=== PATIENT | male | born 1995 | race Caucasian/White ===

== ENCOUNTER 2019-04-07 07:25 | Emergency (ER) | payer MEDICAID ==
--- NOTE | 2019-04-07 07:41 | Emergency Department Record ---
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 He decided to get it checked. He was seen at Urgent care a month ago for the same problem and was told he had tendonitis. He was placed in a splint and given motrin 800 BID to TID which he has been doing. He is right handed. He denies other roblems. They did not xray his wrist at his initial visit. MD Complaint: Extremity pain Onset/Timin -: Month(s) Location: Right, Hand History of Same: No Radiation: Proximal Severity scale (1-10): 6 Quality: Aching Consistency: Constant Improves with: Nothing Worsens with: Nothing Associated Symptoms: Denies other symptoms - Related Data Allergies Allergy/AdvReac Type Severity Reaction Status Date / Time No Known Drug Allergies Allergy Verified 04/07/19 07:34 Travel Screening - Travel/Exposure Within Last 30 Days Have you traveled within the last 30 days?: No Review of Systems Reviewed: No additional complaints except as noted below Constitutional: Reports: As per HPI. Denies: Chills, Fever, Malaise, Night sweats, Weakness, Weight change Eyes: Reports: As per HPI. Denies: Eye discharge, Eye pain, Photophobia, Vision change ENT: Reports: As per HPI. Denies: Congestion, Dental pain, Ear pain, Epistaxis, Hearing loss, Throat pain Respiratory: Reports: As per HPI. Denies: Cough, Dyspnea, Hemoptysis, Stridor, Wheezes Cardiovascular: Reports: As per HPI. Denies: Arrhythmia, Chest pain, Dyspnea on exertion, Edema, Murmurs, Orthopnea, Palpitations, Paroxysmal nocturnal dyspnea, Rheumatic Fever, Syncope Endocrine: Reports: As per HPI. Denies: Fatigue, Heat or cold intolerance, Polydipsia, Polyuria Gastrointestinal: Reports: As per HPI. Denies: Abdominal pain, Constipation, Diarrhea, Hematemesis, Hematochezia, Melena, Nausea, Vomiting Genitourinary: Reports: As per HPI. Denies: Dysuria, Frequency, Hematuria, Incontinence, Retention, Testicular pain, Testicular mass, Urgency Musculoskeletal: Reports: As per HPI. Denies: Arthralgia, Back pain, Gout, Joint swelling, Myalgia, Neck pain Skin: Reports: As per HPI. Denies: Bruising, Change in color, Change in hair/nails, Lesions, Pruritus, Rash Neurological: Reports: As per HPI. Denies: Abnormal gait, Confusion, Headache, Numbness, Paresthesias, Seizure, Tingling, Tremors, Vertigo, Weakness Psychiatric: Reports: As per HPI. Denies: Anxiety, Auditory hallucinations, Depression, Homicidal thoughts, Suicidal thoughts, Visual hallucinations Hematological/Lymphatic: Reports: As per HPI. Denies: Anemia, Blood Clots, Easy bleeding, Easy bruising, Swollen glands Past Medical History - SOCIAL HISTORY Smoking Status: Never smoker Alcohol Use: None Drug Use: None - RESPIRATORY Hx Respiratory Disorders: No - CARDIOVASCULAR Hx Cardio Disorders: No - NEURO Hx Neuro Disorders: No - GI Hx GI Disorders: No - Hx Genitourinary Disorders: No - ENDOCRINE Hx Endocrine Disorders: No - MUSCULOSKELETAL Hx Musculoskeletal Disorders: No - PSYCH Hx Psych Problems: No - HEMATOLOGY/ONCOLOGY Hx Hematology/Oncology Disorders: No Family Medical History Any Significant Family History?: No Physical Exam - General General Appearance: Alert, Oriented x3, Cooperative, No acute distress - Head Head exam: Normal inspection - Eye Eye exam: Normal appearance, PERRL, EOMI. negative: Conjunctival injection, Nystagmus Pupils: Normal accommodation - ENT ENT exam: Normal exam, Mucous membranes moist, Normal external ear exam, Normal orophraynx, TM's normal bilaterally Ear exam: Normal external inspection. negative: External canal tenderness Nasal Exam: Normal inspection. negative: Discharge, Sinus tenderness Mouth exam: Normal external inspection, Tongue normal Teeth exam: Normal inspection. negative: Dental caries Throat exam: Normal inspection. negative: Tonsillar erythema, Tonsillar exudate - Neck Neck exam: Normal inspection, Full ROM. negative: Lymphadenopathy, Meningismus, Tenderness - Respiratory Respiratory exam: Normal lung sounds bilaterally. negative: Respiratory distress - Cardiovascular Cardiovascular Exam: Regular rate, Normal rhythm, Normal heart sounds - GI/Abdominal GI/Abdominal exam: Soft. negative: Tenderness - Rectal Rectal exam: Deferred - exam: Deferred - Extremities Extremities exam: Normal inspection, Full ROM, Normal capillary refill, Tenderness (tender over dorsal aspect of right wrist joint. Flexion, gripping, and ulnar deviation produces the pain of chief complaint. No snuff box tenderness. ) - Back Back exam: Reports: Normal inspection, Full ROM. Denies: Muscle spasm, Rash noted, Tenderness - Neurological Neurological exam: Alert, Normal gait, Oriented X3, Reflexes normal - Psychiatric Psychiatric exam: Normal affect, Normal mood - Skin Skin exam: Dry, Intact, Normal color, Warm Course Vital Signs 04/07/19 07:29 Temperature 97.7 F Pulse Rate [ 75 Pulse Ox Probe] Respiratory 20 Rate Blood Pressure 126/79 [Left Arm] Pulse Ox 99 Medical Decision Making - Management Options MDM Management: No Additional Work-up Planned (PCP follow up and work restriction.) - Data Complexity MDM Data: X-Ray Ordered and/or Reviewed (Right wrist xray preliminary read by ED physician as negative.) Disposition Disposition: Discharge Clinical Impression: Tenosynovitis of right wrist Disposition: Home, Self-Care Return To Work/School Note Provided: Yes Instructions: Tenosynovitis (ED), Tendinitis (ED) Additional Instructions: Continue splint to right wrist. Continue motrin 800 mg three times daily with food. Work restriction: No use of right wrist or hand for 1 week. PCP follow up in office next Thursday04-12-19 as previously arranged. Forms: Patient Portal Access Quality - Quality Measures Quality Measures: N/A - Blood Pressure Screening Does Patient Have Any of the Following: No Blood Pressure Classification: Pre-Hypertensive BP Reading Systolic Measurement: 126 Diastolic Measurement: 79 Screening for High Blood Pressure: < Normal BP, F/U Not Required > [G8783]
--- NOTE | 2019-04-09 08:01 | RADIOLOGY REPORT ---
EXAM: WRIST, RIGHT 3 VIEWS HISTORY: WRIST PAIN FOR ONE MONTH. TECHNIQUE: Frontal, lateral, oblique. COMPARISON: None. FINDINGS: No clear cortical or trabecular disruption identified. Carpal orientation and spacing appears normal. No radiopaque foreign body identified. IMPRESSION: NO ABNORMALITY EVIDENT RADIOGRAPHICALLY. THE NEED FOR ADDITIONAL IMAGING SHOULD BE DETERMINED CLINICALLY. ER PHYSICIAN NOTIFIED BY VOICE CLIP. JOB NUMBER: [id number] MTDD
== END 2019-04-07 08:45 | disposition home or self-care (01) ==
LOC: ER 07:25
DX: M65.821 Other synovitis and tenosynovitis, right upper arm (principal)
CPT/HCPCS: 99283